=== PATIENT | female | born 1955 | race Caucasian/White ===

== ENCOUNTER 2018-11-14 07:42 | Day surgery (SDC) | payer BC ==
[~2018-11-14] VITALS: Ht 160 cm; Wt 72.0 kg
[~2018-11-14 07:42] MED LIST: ATEN25; ATOR20; Aspirin EC325 MG PO; CLIN300 PO; CRANBERRY; FENO48 PO; GLIM2 PO; HYDACE5 PO; LEVFLO500 PO; LISHYD2012 PO; METF500C; METF500C PO; METO50 PO; OLME20-12.; ONDA4ODT MM; PRILOSEC PO; RXONDA4ODT MM; SIMV20 PO; TELM80 PO; VITAMIN D33000 UNIT PO
== END 2018-11-14 09:52 | disposition home or self-care (01) ==
LOC: ORSCSDS 07:42
PROVIDERS: Internal Medicine Gastroenterology
PROC: 0DJD8ZZ Inspection of Lower Intestinal Tract, Via Natural or Artificial Opening Endoscopic (ICD-10-PCS; principal; 2018-11-14 09:15)
DX: Z12.11 Encounter for screening for malignant neoplasm of colon (principal); K57.30 Diverticulosis of large intestine without perforation or abscess without bleeding; K64.8 Other hemorrhoids; E03.9 Hypothyroidism, unspecified; Z79.899 Other long term (current) drug therapy
CPT/HCPCS: 82947; J7120

== ENCOUNTER 2019-10-09 10:04 | Day surgery (SDC) | payer BC ==
--- NOTE | 2019-10-09 14:25 | NUR ---
PATIENT REMAINS WITH STABLE VITALS, NO C/O PAIN OR NAUSEA T/O RECOVERY. WISHES TO AMBULATE OUT AFTER RECOVERY. STEADY ON FEET.VITALS STABLE. FRIEND AT BEDSIDE
== END 2019-10-09 22:39 | disposition home or self-care (01) ==
LOC: CT 10:04
DX: C22.7 Other specified carcinomas of liver (principal); I10 Essential (primary) hypertension; E11.9 Type 2 diabetes mellitus without complications; E78.5 Hyperlipidemia, unspecified; Z88.5 Allergy status to narcotic agent; Z91.040 Latex allergy status; Z91.041 Radiographic dye allergy status; Z79.84 Long term (current) use of oral hypoglycemic drugs; Z79.82 Long term (current) use of aspirin; Z79.899 Other long term (current) drug therapy
CPT/HCPCS: 47000; 77012; 88307; 88341; 88342

== ENCOUNTER 2019-10-24 12:01 | Day surgery (SDC) | payer BC ==
[~2019-10-24] VITALS: Ht 160 cm; Wt 69.7 kg
== END 2019-10-24 14:42 | disposition home or self-care (01) ==
LOC: ORSCSDS 12:01
PROVIDERS: Internal Medicine Gastroenterology
PROC: 0DB68ZX Excision of Stomach, Via Natural or Artificial Opening Endoscopic, Diagnostic (ICD-10-PCS; principal; 2019-10-24 13:45)
DX: R94.5 Abnormal results of liver function studies (principal); K29.80 Duodenitis without bleeding; E11.9 Type 2 diabetes mellitus without complications; I10 Essential (primary) hypertension; E78.00 Pure hypercholesterolemia, unspecified; Z79.84 Long term (current) use of oral hypoglycemic drugs; Z79.899 Other long term (current) drug therapy
CPT/HCPCS: 82947; 88305; 88342; J2704; J7120

== ENCOUNTER 2021-03-25 20:44 | Emergency (ER) | payer MEDICARE, OTHER ==
[~2021-03-25] VITALS: Ht 160 cm; Wt 61.2 kg
[~2021-03-25 20:44] MED LIST changes: -METO50 PO; +METO50ER PO; +OMEP20ER PO; -PRILOSEC PO; +VITAMIN D31000 UNI1 PO; -VITAMIN D33000 UNIT PO
[2021-03-25 21:54] LABS: BASOPHILS ABSOLUTE AUTO 0.04 K/mm3 (0.00-0.23); BASOPHILS PERCENT AUTO 0 % (0-2); EOSINOPHILS ABSOLUTE AUTO 0.17 K/mm3 (0.00-0.68); EOSINOPHILS PERCENT AUTO 2 % (0-6); Hematocrit 33.5 % (33.0-51.0); Hemoglobin 11.6 g/dL (11.5-16.0); IMMATURE GRAN ABSOLUTE AUTO 0.03 K/mm3 (0.00-0.10); IMMATURE GRAN PERCENT AUTO 0 % (0-1); LYMPHOCYTES PERCENT AUTO 21 % (21-46); MONOCYTES ABSOLUTE AUTO 0.67 K/mm3 (0.16-1.47); MONOCYTES PERCENT AUTO 7 % (4-13); Mean Corpuscular HGB 30.9 pg (26.0-34.0); Mean Corpuscular HGB Conc 34.6 g/dL (31.5-36.5); Mean Corpuscular Volume 89 fL (80-100); Mean Platelet Volume 10.4 fL (9.1-12.4); NEUTROPHILS ABSOLUTE AUTO 6.22 K/mm3 (1.96-9.15); NEUTROPHILS PERCENT AUTO 69 % (41-73); Platelet Count 329 K/mm3 (150-400); RDW Coefficient Variation 11.8 % (11.7-14.2); RDW Standard Deviation 38.5 fL (35.1-46.3); Red Blood Cell Count 3.75 M/mm3 (3.80-5.20); White Blood Cell Count 9.03 K/mm3 (4.00-11.30)
[2021-03-25 22:10] LABS: Alanine Aminotransfer (ALT/SGP 23 U/L (12-78); Albumin, Blood 3.3 g/dL (3.4-5.0); Albumin/Globulin Ratio 0.9 (0.8-1.8); Alk Phos 64 U/L (50-136); Anion Gap 4 mmol/L (6-16); Aspartate Aminotrans (AST/SGOT 16 U/L (12-37); Bilirubin, Total 0.5 mg/dL (0.1-1.0); Blood Urea Nitrogen 20 mg/dL (8-24); Bun/Creatinine Ratio 21.7 (12.0-20.0); CO2, Blood 29 mmol/L (21-32); Calcium, Blood 9.1 mg/dL (8.5-10.1); Chloride, Blood 101 mmol/L (98-108); Creatinine, Blood 0.92 mg/dL (0.40-1.00); Globulin, Blood 3.8 g/dL (2.2-4.0); Glomerular Filtration Rate >60 (60-); Glucose, Blood 109 mg/dL (70-99); Sodium, Blood 134 mmol/L (136-145); Total Protein, Blood 7.1 g/dL (6.4-8.2)
[2021-03-26 00:50] LABS: Source, Urine Clean Catch
[2021-03-26 00:53] LABS: Appearance, Urine Clear (Clear); Bilirubin, Urine Neg (Neg); Blood, Urine Neg (Neg); Color, Urine Yellow (P-Yellow); Glucose Qualitative, Urine Neg (Neg); Ketones, Urine Neg (Neg); Leukocyte Esterase, Urine Neg (Neg); Nitrite, Urine Neg (Neg); Protein, Urine Neg (Neg); Urobilinogen, Urine NORM (Normal)
[2021-03-26] MEDS ORDERED: AMOCLA875 PO (01:42)
== END 2021-03-26 02:03 | disposition home or self-care (01) ==
LOC: ER 20:44
PROVIDERS: Physician Assistant
DX: K57.92 Diverticulitis of intestine, part unspecified, without perforation or abscess without bleeding (principal); E11.9 Type 2 diabetes mellitus without complications; I10 Essential (primary) hypertension; E78.00 Pure hypercholesterolemia, unspecified; Z79.899 Other long term (current) drug therapy; Z79.84 Long term (current) use of oral hypoglycemic drugs; Z79.82 Long term (current) use of aspirin; Z91.040 Latex allergy status; Z88.5 Allergy status to narcotic agent
CPT/HCPCS: 36415; 74176; 80053; 81003; 83690; 85025; 96374; 99284-25; A9270; J2405

== ENCOUNTER 2021-03-31 10:21 | Inpatient (IN) | payer MEDICARE, OTHER ==
[~2021-03-31] VITALS: Ht 160 cm; Wt 61.8 kg
[~2021-03-31 10:21] MED LIST changes: +AMOCLA875 PO
[2021-03-31 11:27] LABS: BASOPHILS ABSOLUTE AUTO 0.04 K/mm3 (0.00-0.23); BASOPHILS PERCENT AUTO 0 % (0-2); EOSINOPHILS ABSOLUTE AUTO 0.32 K/mm3 (0.00-0.68); EOSINOPHILS PERCENT AUTO 3 % (0-6); IMMATURE GRAN ABSOLUTE AUTO 0.04 K/mm3 (0.00-0.10); IMMATURE GRAN PERCENT AUTO 0 % (0-1); LYMPHOCYTES ABSOLUTE AUTO 1.04 K/mm3 (0.84-5.20); LYMPHOCYTES PERCENT AUTO 10 % (21-46); MONOCYTES ABSOLUTE AUTO 0.85 K/mm3 (0.16-1.47); MONOCYTES PERCENT AUTO 8 % (4-13); Mean Corpuscular HGB 30.5 pg (26.0-34.0); Mean Corpuscular HGB Conc 34.3 g/dL (31.5-36.5); Mean Corpuscular Volume 89 fL (80-100); Mean Platelet Volume 10.3 fL (9.1-12.4); NEUTROPHILS ABSOLUTE AUTO 7.88 K/mm3 (1.96-9.15); NEUTROPHILS PERCENT AUTO 78 % (41-73); Platelet Count 361 K/mm3 (150-400); RDW Coefficient Variation 11.6 % (11.7-14.2); RDW Standard Deviation 37.4 fL (35.1-46.3); Red Blood Cell Count 3.93 M/mm3 (3.80-5.20); White Blood Cell Count 10.17 K/mm3 (4.00-11.30)
[2021-03-31 11:48] LABS: Albumin/Globulin Ratio 0.7 (0.8-1.8); Bilirubin, Total 0.5 mg/dL (0.1-1.0); Bun/Creatinine Ratio 18.6 (12.0-20.0); Creatinine, Blood 1.02 mg/dL (0.40-1.00); Globulin, Blood 4.5 g/dL (2.2-4.0); Potassium, Blood 4.1 mmol/L (3.5-5.5); Total Protein, Blood 7.5 g/dL (6.4-8.2)
[2021-03-31 12:11] LABS: Source, Urine Clean Catch
[2021-03-31 12:18] LABS: Appearance, Urine Clear (Clear); Bilirubin, Urine Neg (Neg); Blood, Urine Neg (Neg); Color, Urine Yellow (P-Yellow); Glucose Qualitative, Urine Neg (Neg); Ketones, Urine Neg (Neg); Leukocyte Esterase, Urine 1+ (Neg); Nitrite, Urine Neg (Neg); Protein, Urine 1+ (Neg); Urobilinogen, Urine 1+ (Normal)
[2021-03-31 12:36] LABS: Squamous Epithelial Cells Few /hpf (Few)
[2021-03-31 12:37] LABS: Red Blood Cells, Urine 0-2 /hpf (0-2); White Blood Cells, Urine 0-2 /hpf (0-5)
[2021-03-31 12:59] LABS: Bacteria Rare /hpf
[2021-03-31] MEDS ORDERED: ATOR10 PO (13:38)
[2021-03-31] MEDS ORDERED: HYDROCHLOROTH12.5 MG PO (13:44)
[2021-03-31] MEDS ORDERED: FAMO20 PO (13:48)
--- NOTE | 2021-03-31 17:44 | NUR ---
1600 RECEIVED PT TO RM [id number] FROM ER. PT IS A&O, PLEASANT AND CO-OP. ADMITTED FOR RECURRENT DIVERTICULITIS. PER REPORT, 6TH TIME IN LAST 3 MONTHS. PT TO ER WITH C/O ABD PAIN AND NAUSEA. IV ABX STARTED. PT IS CURRENTLY NPO. IVF'S INFUSING PER EMAR. TO FOR A SHORT WHILE, GOING HOME AT THIS TIME. CALL LT IN REACH. DENIES FURTHER NEEDS.
--- NOTE | 2021-03-31 18:28 | NUR ---
1800 CBG CHECK SHOWING 65. HOSPITALIST NOTIFIED. NEW ORDERS RECEIVED AND IVF'S CHANGED. PT ASYMPTOMATIC, RESTING QUIETLY TEXTING ON CELL PHONE.
--- NOTE | 2021-03-31 21:08 | NUR ---
ASSUMPTION OF CARE. AOX3. NPO. STATES CURRENT PAIN LEVEL 4/10. MEDICATED FOR NAUSEA. DOES GET DIZZY AFTER TAKING FENTANYL, ENCOURAGE HER TO CALL TO USE THE BATHROOM. BS 102, REST OF VITALS NORMAL. ABDOMIN SLIGHT TENDER ON PALPITATION, BT HYPOACTIVE. WILL CONTINUE TO MONITOR. CALL LIGHT IN REACH.
--- NOTE | 2021-04-01 05:33 | NUR ---
SHIFT SUMMARY: AOX3, SBA TO BATHROOM. ABDOMINAL PAIN CRAMPING OFF AND ON, INCREASES WITH MOVEMENT. BT HYPOACTIVE. NAUSEA, MEDICATED X1, NO EMESIS. MEDICATED FOR PAIN X2. NO ABDOMINAL DISTENTION BUT DOES HAVE SOME TENDERNESS. APPETITE POOR, NPO. BS HOLDING ABOVE 100. LAST ONE 151 DID NOT GIVE COVERAGE PER REQUEST. D5 45%NS INFUSING. AFEBRILE/VSS. WANTS TO BE CALLED IF THERE IS THE LITTLEST CHANGE. PHONE NUMBERS ARE [phone] , CELL. CALL LIGHT USED APPROPRIATLY. IS ABLE TO MAKE NEEDS KNOWN.
[2021-04-01 05:48] LABS: Bun/Creatinine Ratio 10.7 (12.0-20.0); Calcium, Blood 8.5 mg/dL (8.5-10.1); Creatinine, Blood 1.03 mg/dL (0.40-1.00)
--- NOTE | 2021-04-01 13:00 | NUR ---
SHIFT SUMMARY PT AWAKE AT START OF SHIFT, RESTING QUIETLY WATCHING TV. IVF'S INFUSING. PT FEELING A LITTLE BETTER TODAY. UP WITH SBA TO BTHRM R/T WEAKNESS AND IV PUMP. DR GREEN IN TO SEE PT WELL DR BARROW. PT WILL NOT NEED SX AT THIS TIME. PT GRATEFUL FOR THAT. IVF'S STOPPED AND DIET ADVANCED. PT NOW ABLE TO AMBULATE TO BTHRM INDEPENDENTLY USING FWW FOR SAFETY. NO C/O PAIN TO PRESENT THIS SHIFT. CALL LT REACH.
--- NOTE | 2021-04-01 20:46 | NUR ---
ASSUMED CARE. AOX3, DOING BETTER. STATES PAIN IS UP THERE. MEDICATED WITH NORCO. NO NAUSEA. TENDERNESS STILL IN ABDOMIN, BT HYPOACTIVE. INDEPENDENT IN THE ROOM. TOLERATING FOOD AND WATER WELL. HOPES TO GO HOME TOMORROW. VSS/AFEBRILE. NO OTHER NEEDS NOTED. CALL LIGHT IN REACH.
[2021-04-02 06:04] LABS: BASOPHILS ABSOLUTE AUTO 0.03 K/mm3 (0.00-0.23); BASOPHILS PERCENT AUTO 1 % (0-2); EOSINOPHILS PERCENT AUTO 6 % (0-6); Hematocrit 32.9 % (33.0-51.0); Hemoglobin 11.3 g/dL (11.5-16.0); IMMATURE GRAN ABSOLUTE AUTO 0.01 K/mm3 (0.00-0.10); IMMATURE GRAN PERCENT AUTO 0 % (0-1); LYMPHOCYTES ABSOLUTE AUTO 1.32 K/mm3 (0.84-5.20); LYMPHOCYTES PERCENT AUTO 28 % (21-46); MONOCYTES ABSOLUTE AUTO 0.41 K/mm3 (0.16-1.47); MONOCYTES PERCENT AUTO 9 % (4-13); Mean Corpuscular HGB 30.8 pg (26.0-34.0); Mean Corpuscular HGB Conc 34.3 g/dL (31.5-36.5); Mean Corpuscular Volume 90 fL (80-100); Mean Platelet Volume 9.9 fL (9.1-12.4); NEUTROPHILS ABSOLUTE AUTO 2.61 K/mm3 (1.96-9.15); NEUTROPHILS PERCENT AUTO 56 % (41-73); Platelet Count 292 K/mm3 (150-400); RDW Coefficient Variation 11.6 % (11.7-14.2); RDW Standard Deviation 37.8 fL (35.1-46.3); Red Blood Cell Count 3.67 M/mm3 (3.80-5.20); White Blood Cell Count 4.68 K/mm3 (4.00-11.30)
--- NOTE | 2021-04-02 06:14 | NUR ---
SHIFT SUMMARY: AOX3, INDEPENDENT IN ROOM. TOLERATED DINNER TILL AFTER PAIN MED WAS GIVEN THEN SHE THREW IT UP. ESTIMATED 150ML. NAUSEA THIS AM BUT NO PAIN. IV INFILTRATED THIS AM. WILL LEAVE IT OUT AT THIS TIME SHE MAY GO HOME TODAY. SLEPT WELL T/O THE NIGHT. VSS/AFEBRILE. 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 CALL LIGHT IS IN REACH. WILL CONTINUE TO MONITOR.
[2021-04-02 06:34] LABS: Bun/Creatinine Ratio 7.5 (12.0-20.0); Calcium, Blood 8.8 mg/dL (8.5-10.1); Creatinine, Blood 1.07 mg/dL (0.40-1.00); Potassium, Blood 4.3 mmol/L (3.5-5.5)
--- NOTE | 2021-04-02 10:41 | NUR ---
DR HAGEN REQUESTED I CALL DR BARROW. SEE IF CAN D/CHG. CALLED DR BARROW OFC. RUBINA 10;15 TO TKE MSG TO . DR BARROW OKAYED THRU ASST, RUBINA AT 1025 FOR D/CHG FROM [facility]. CALLED DR HAGEN TO ADVISE. PRISCILLA CALLED. PT DOES NOT DO WELL WITH PO ABX. USUALLY THROWS UP. REQUEST CALL TO DR. CALLED DR HAGEN. SHE AGREED TO CONTACT.
[2021-04-02] MEDS ORDERED: Acetaminophen325 M1 PO (12:55)
[2021-04-02] MEDS ORDERED: CEFTRIAXONE1 GM IV (12:56)
[2021-04-02] MEDS ORDERED: ONDA4ODT MM (12:57)
[2021-04-02] MEDS ORDERED: OXYC5 PO (12:57)
[2021-04-02] MEDS ORDERED: VISBIOME 112.51 EACH PO (12:58)
[2021-04-02] MEDS ORDERED: METR500 PO (12:59)
--- NOTE | 2021-04-02 15:49 | NUR ---
1437 PT DISCHARGE REVIEWED WITH PT. SHE VERBALIZED UNDERSTNDING MEDS AND INST. IS AWARE OF APPOINTMENT TOMORROW FOR ATC. NO TELE. LEFT IV FOR INFUSION NEEDS. PT WHEELED TO DOOR BY AIDE [id number]
== END 2021-04-02 15:18 | disposition home or self-care (01) | DRG 392 ==
LOC: ER 10:21 → MEDS 13:43
PROVIDERS: Internal Medicine; Physician Assistant; ADMIT Internal Medicine
DX: K57.32 Diverticulitis of large intestine without perforation or abscess without bleeding (principal); D63.1 Anemia in chronic kidney disease; N18.30 Chronic kidney disease, stage 3 unspecified; E11.22 Type 2 diabetes mellitus with diabetic chronic kidney disease; I12.9 Hypertensive chronic kidney disease with stage 1 through stage 4 chronic kidney disease, or unspecified chronic kidney disease; E78.5 Hyperlipidemia, unspecified; Z79.84 Long term (current) use of oral hypoglycemic drugs; Z79.82 Long term (current) use of aspirin; Z79.899 Other long term (current) drug therapy; Z88.5 Allergy status to narcotic agent; Z91.040 Latex allergy status; Z91.02 Food additives allergy status; Z85.51 Personal history of malignant neoplasm of bladder; Z90.710 Acquired absence of both cervix and uterus; Z90.49 Acquired absence of other specified parts of digestive tract; Z98.890 Other specified postprocedural states; Z85.05 Personal history of malignant neoplasm of liver; Z87.442 Personal history of urinary calculi
CPT/HCPCS: 36415; 74176; 80048; 80053; 81001; 81025; 82150; 82947; 83690; 83735; 85025; 87086; 93005; 93010; 96374; 96375; 99285-25; A9270; J0696; J1650; J2405; J2543; J3010; J7030; J7042

== ENCOUNTER 2021-04-03 04:07 | Day surgery (SDC) | payer MEDICARE, OTHER ==
[~2021-04-03] VITALS: Wt 61.5 kg
[~2021-04-03 04:07] MED LIST changes: +ATOR10 PO; +Acetaminophen325 M1 PO; +CEFTRIAXONE1 GM IV; +FAMO20 PO; +HYDROCHLOROTH12.5 MG PO; +METR500 PO; +OXYC5 PO; +VISBIOME 112.51 EACH PO
== END 2021-04-03 11:15 | disposition home or self-care (01) ==
LOC: ATC 04:07
DX: K57.92 Diverticulitis of intestine, part unspecified, without perforation or abscess without bleeding (principal); I10 Essential (primary) hypertension; E11.9 Type 2 diabetes mellitus without complications; Z79.82 Long term (current) use of aspirin; Z79.84 Long term (current) use of oral hypoglycemic drugs
CPT/HCPCS: 96365; J0696

== ENCOUNTER 2021-04-04 04:38 | Day surgery (SDC) | payer MEDICARE, OTHER | END 2021-04-04 08:43 | disposition home or self-care (01) | LOC: ATC 04:38 | DX: K57.92 Diverticulitis of intestine, part unspecified, without perforation or abscess without bleeding (principal); E11.9 Type 2 diabetes mellitus without complications; I10 Essential (primary) hypertension; Z88.5 Allergy status to narcotic agent; Z88.8 Allergy status to other drugs, medicaments and biological substances; Z91.041 Radiographic dye allergy status; Z91.040 Latex allergy status; Z79.82 Long term (current) use of aspirin | CPT/HCPCS: 96365; J0696 ==

== ENCOUNTER 2021-04-05 08:19 | Day surgery (SDC) | payer MEDICARE, OTHER | END 2021-04-05 08:47 | disposition home or self-care (01) | LOC: ATC 08:19 | DX: K57.92 Diverticulitis of intestine, part unspecified, without perforation or abscess without bleeding (principal); I10 Essential (primary) hypertension; E11.9 Type 2 diabetes mellitus without complications; E78.00 Pure hypercholesterolemia, unspecified; Z88.8 Allergy status to other drugs, medicaments and biological substances; Z88.5 Allergy status to narcotic agent; Z91.040 Latex allergy status; Z79.82 Long term (current) use of aspirin; Z79.84 Long term (current) use of oral hypoglycemic drugs | CPT/HCPCS: 96365; J0696 ==

== ENCOUNTER 2021-04-06 07:54 | Day surgery (SDC) | payer MEDICARE, OTHER | END 2021-04-06 08:17 | disposition home or self-care (01) | LOC: ATC 07:54 | DX: K57.92 Diverticulitis of intestine, part unspecified, without perforation or abscess without bleeding (principal); E11.9 Type 2 diabetes mellitus without complications; I10 Essential (primary) hypertension; Z88.5 Allergy status to narcotic agent; Z88.8 Allergy status to other drugs, medicaments and biological substances; Z91.040 Latex allergy status; Z79.84 Long term (current) use of oral hypoglycemic drugs | CPT/HCPCS: 96365; J0696 ==

== ENCOUNTER 2021-04-07 00:14 | Day surgery (SDC) | payer MEDICARE, OTHER | END 2021-04-07 09:20 | disposition home or self-care (01) | LOC: ATC 00:14 | DX: K57.92 Diverticulitis of intestine, part unspecified, without perforation or abscess without bleeding (principal); I10 Essential (primary) hypertension; E11.9 Type 2 diabetes mellitus without complications; Z85.51 Personal history of malignant neoplasm of bladder; Z79.82 Long term (current) use of aspirin; Z79.84 Long term (current) use of oral hypoglycemic drugs | CPT/HCPCS: 96365; J0696 ==

== ENCOUNTER → 2024-07-20 | Outpatient (CLI) | payer MEDICARE, OTHER ==
[2024-07-20 12:49] LABS: Source, Urine Clean Catch
[2024-07-20 15:48] LABS: Appearance, Urine Cloudy (Clear); Bilirubin, Urine Neg (Neg); Blood, Urine Neg (Neg); Color, Urine Yellow (P-Yellow); Glucose Qualitative, Urine Neg (Neg); Ketones, Urine Neg (Neg); Leukocyte Esterase, Urine 2+ (Neg); Nitrite, Urine Neg (Neg); Protein, Urine 1+ (Neg); Specific Gravity, Urine 1.025 (1.003-1.022); Urobilinogen, Urine NORM (Normal)
[2024-07-20 16:01] LABS: Amorphous Heavy (0-Heavy); Bacteria Mod /hpf; Squamous Epithelial Cells Few /hpf (Few)
== END | disposition home or self-care (01) ==
LOC: LAB SHORT 11:00 → LAB 11:00
PROVIDERS: Internal Medicine
DX: R30.0 Dysuria (principal)
CPT/HCPCS: 81001; 87077; 87086; 87186